=== PATIENT | male | born 1990 | race Caucasian/White ===

== ENCOUNTER 2018-09-12 05:09 | Emergency (ER) | payer OTHER ==
--- NOTE | 2018-09-12 05:20 | ER Report ---
History and Physical Time Seen By MD: 05:20 HPI/ROS CHIEF COMPLAINT: Left-sided flank pain HISTORY OF PRESENT ILLNESS: Patient is a 28-year-old male here with complaints of left-sided flank pain, left abdominal discomfort since approximately 1900 hrs. patient is a history significant for several kidney stones some of which required surgical intervention and urology retrieval. Patient reports that he developed flank pain, radiation to the left lower quadrant of the abdomen, nausea without vomiting over the course of the evening. Patient denies fevers, chills. Patient is passing bowel movements without issue. Patient is hemodynamically stable at time of evaluation REVIEW OF SYSTEMS: Constitutional: No fever, no chills. Eyes: No discharge. ENT: No sore throat. Cardiovascular: No chest pain, no palpitations. Respiratory: No cough, no shortness of breath. Gastrointestinal: + Left lower quadrant abdominal pain, no vomiting.+ Left flank pain Genitourinary: No hematuria or burning with urination. Musculoskeletal: + Left flank pain Skin: No rashes. Neurological: No headache. Allergies: Coded Allergies: No Known Drug Allergies (Unverified , 09/12/18) Home Meds Active Scripts Tamsulosin Hcl (FLOMAX) 0.4 Mg Cap.er.24h, 0.4 MG PO QDAY, #14 CAP 0 Refills Prov:MADI DHALIWAL DO 09/12/18 Oxycodone Hcl/Acetaminophen (PERCOCET 5-325 MG TABLET) 1 Each Tablet, 1 EACH PO Q4H PRN for PAIN, #12 TAB 0 Refills Prov:MADI DHALIWAL DO 09/12/18 Ondansetron 4 Mg Odt (ONDANSETRON 4 MG ODT) 4 Mg Tab.rapdis, 4 MG PO ONCE, #30 TAB Prov:MADI DHALIWAL DO 09/12/18 Reported Medications Potassium Citrate (POTASSIUM CITRATE) 10 Meq Tablet.er, 10 MEQ PO BID 09/12/18 Testosterone Cypionate (TESTOSTERONE CYPIONATE) 100 Mg/1 Ml Vial, 5 ML IM QWEEKF, VIAL 09/12/18 Constitutional Vital Sign - Last 24 Hours 09/12/18 09/12/18 09/12/18 09/12/18 05:09 05:17 05:18 05:24 Temp 97.8 Pulse ??? 77 89 Resp 16 B/P (MAP) 138/89 (105) 138/89 Pulse Ox 94 97 O2 Delivery Room Air 09/12/18 09/12/18 09/12/18 09/12/18 05:30 05:39 05:54 06:00 Pulse ? B/P (MAP) 125/77 (93) ???/??? (1665) 09/12/18 09/12/18 09/12/18 09/12/18 06:09 06:24 06:30 06:39 Pulse ??? 76 77 B/P (MAP) 127/85 (99) Pulse Ox 90 96 09/12/18 09/12/18 06:54 07:00 Pulse 87 B/P (MAP) 135/89 (104) Pulse Ox 95 Intake and Output 09/11/18 09/11/18 09/12/18 15:00 23:00 07:00 Intake Total 1000 ml Balance 1000 ml Physical Exam General Appearance: The patient is alert, has no immediate need for airway protection and no signs of toxicity. No acute distress+ uncomfortable appearing Eyes: Pupils equal and round no pallor or injection. ENT, Mouth: Mucous membranes are moist. Respiratory: There are no retractions, lungs are clear to auscultation. Cardiovascular: Regular rate and rhythm. Gastrointestinal: Abdomen is soft and + tender on palpation of the left lower quadrant, no masses, bowel sounds normal. Neurological: No focal neurological findings Skin: Warm and dry, no rashes. Musculoskeletal: Neck is supple non tender.+ Left sided flank pain Extremities are nontender, nonswollen and have full range of motion. DIFFERENTIAL DIAGNOSIS: After history and physical exam differential diagnosis was considered for abdominal pain including but not limited to appendicitis, c holecystitis, gastritis and urinary tract infection., nephrolithiasis Medical Decision Making Data Points Result Diagram: 09/12/18 0541 09/12/18 0541 Laboratory Hematology Test 09/12/18 05:15 09/12/18 05:41 Urine Color Yellow Urine Clarity Clear Urine pH 6.0 pH (4.8-9.5) Urine Specific [place] 1.015 Urine Protein Negative mg/dL (NEGATIVE) Urine Glucose (UA) Negative mg/dL (NEGATIVE) Urine Ketones Negative mg/dL (NEGATIVE) Urine Blood Moderate (NEGATIVE) Urine Nitrite Negative (NEGATIVE) Urine Bilirubin Negative (NEGATIVE) Urine Urobilinogen Negative mg/dL (0.2-1.9) Urine Leukocyte Esterase Moderate (NEGATIVE) Urine RBC 43 /HPF (0-2/HPF) Urine WBC 3 /HPF (0-5/HPF) Urine Squamous Epithelial Cells Few /LPF (</=FEW) Urine Transitional Epithelial Cells Few /LPF (NONE-FEW) Urine Bacteria Few /HPF (NONE-FEW) Urine Granular Casts Few /LPF (NONE) Urine Mucus Few /HPF (NONE-FEW) Red Blood Count 5.78 M/uL (4.00-5.60) Mean Corpuscular Volume 88.9 fL (80.0-96.0) Mean Corpuscular Hemoglobin 30.1 pg (26.0-33.0) Mean Corpuscular Hemoglobin Concent 33.9 g/dL (32.0-36.0) Red Cell Distribution Width 13.0 % (11.5-14.5) Mean Platelet Volume 7.9 fL (7.2-11.1) Neutrophils (%) (Auto) 60.6 % (39.4-72.5) Lymphocytes (%) (Auto) 29.1 % (17.6-49.6) Monocytes (%) (Auto) 7.8 % (4.1-12.4) Eosinophils (%) (Auto) 1.0 % (0.4-6.7) Basophils (%) (Auto) 1.5 % (0.3-1.4) Nucleated RBC Relative Count (auto) 0.1 /100WBC Neutrophils # (Auto) 3.8 K/uL (2.0-7.4) Lymphocytes # (Auto) 1.8 K/uL (1.3-3.6) Monocytes # (Auto) 0.5 K/uL (0.3-1.0) Eosinophils # (Auto) 0.1 K/uL (0.0-0.5) Basophils # (Auto) 0.1 K/uL (0.0-0.1) Nucleated RBC Absolute Count (auto) 0.01 K/uL Sodium Level 136 mmol/L (137-145) Potassium Level 3.9 mmol/L (3.5-5.0) Chloride Level 104 mmol/L (98-107) Carbon Dioxide Level 23 mmol/L (22-30) Blood Urea Nitrogen 10 mg/dl (9-21) Creatinine 1.00 mg/dl (0.66-1.25) Glomerular Filtration Rate Calc > 60.0 Random Glucose 93 mg/dl (75-110) Calcium Level 9.5 mg/dl (8.4-10.2) Total Bilirubin 0.6 mg/dl (0.2-1.3) Aspartate Amino Transf (AST/SGOT) 20 U/L (0-35) Alanine Aminotransferase (ALT/SGPT) 39 U/L (0-56) Alkaline Phosphatase 75 U/L (0-126) Total Protein 6.5 g/dl (6.3-8.2) Albumin 4.1 g/dl (3.5-5.0) Lipase 147 U/L (23-300) Chemistry Test 09/12/18 05:15 09/12/18 05:41 Urine Color Yellow Urine Clarity Clear Urine pH 6.0 pH (4.8-9.5) Urine Specific [place] 1.015 Urine Protein Negative mg/dL (NEGATIVE) Urine Glucose (UA) Negative mg/dL (NEGATIVE) Urine Ketones Negative mg/dL (NEGATIVE) Urine Blood Moderate (NEGATIVE) Urine Nitrite Negative (NEGATIVE) Urine Bilirubin Negative (NEGATIVE) Urine Urobilinogen Negative mg/dL (0.2-1.9) Urine Leukocyte Esterase Moderate (NEGATIVE) Urine RBC 43 /HPF (0-2/HPF) Urine WBC 3 /HPF (0-5/HPF) Urine Squamous Epithelial Cells Few /LPF (</=FEW) Urine Transitional Epithelial Cells Few /LPF (NONE-FEW) Urine Bacteria Few /HPF (NONE-FEW) Urine Granular Casts Few /LPF (NONE) Urine Mucus Few /HPF (NONE-FEW) White Blood Count 6.2 k/uL (4.5-11.0) Red Blood Count 5.78 M/uL (4.00-5.60) Hemoglobin 17.4 g/dL (14.0-18.0) Hematocrit 51.4 % (42.0-52.0) Mean Corpuscular Volume 88.9 fL (80.0-96.0) Mean Corpuscular Hemoglobin 30.1 pg (26.0-33.0) Mean Corpuscular Hemoglobin Concent 33.9 g/dL (32.0-36.0) Red Cell Distribution Width 13.0 % (11.5-14.5) Platelet Count 271 K/uL (150-450) Mean Platelet Volume 7.9 fL (7.2-11.1) Neutrophils (%) (Auto) 60.6 % (39.4-72.5) Lymphocytes (%) (Auto) 29.1 % (17.6-49.6) Monocytes (%) (Auto) 7.8 % (4.1-12.4) Eosinophils (%) (Auto) 1.0 % (0.4-6.7) Basophils (%) (Auto) 1.5 % (0.3-1.4) Nucleated RBC Relative Count (auto) 0.1 /100WBC Neutrophils # (Auto) 3.8 K/uL (2.0-7.4) Lymphocytes # (Auto) 1.8 K/uL (1.3-3.6) Monocytes # (Auto) 0.5 K/uL (0.3-1.0) Eosinophils # (Auto) 0.1 K/uL (0.0-0.5) Basophils # (Auto) 0.1 K/uL (0.0-0.1) Nucleated RBC Absolute Count (auto) 0.01 K/uL Glomerular Filtration Rate Calc > 60.0 Calcium Level 9.5 mg/dl (8.4-10.2) Total Bilirubin 0.6 mg/dl (0.2-1.3) Aspartate Amino Transf (AST/SGOT) 20 U/L (0-35) Alanine Aminotransferase (ALT/SGPT) 39 U/L (0-56) Alkaline Phosphatase 75 U/L (0-126) Total Protein 6.5 g/dl (6.3-8.2) Albumin 4.1 g/dl (3.5-5.0) Lipase 147 U/L (23-300) Urinalysis Test 09/12/18 05:15 Urine Color Yellow Urine Clarity Clear Urine pH 6.0 pH (4.8-9.5) Urine Specific [place] 1.015 Urine Protein Negative mg/dL (NEGATIVE) Urine Glucose (UA) Negative mg/dL (NEGATIVE) Urine Ketones Negative mg/dL (NEGATIVE) Urine Blood Moderate (NEGATIVE) Urine Nitrite Negative (NEGATIVE) Urine Bilirubin Negative (NEGATIVE) Urine Urobilinogen Negative mg/dL (0.2-1.9) Urine Leukocyte Esterase Moderate (NEGATIVE) Urine RBC 43 /HPF (0-2/HPF) Urine WBC 3 /HPF (0-5/HPF) Urine Squamous Epithelial Cells Few /LPF (</=FEW) Urine Transitional Epithelial Cells Few /LPF (NONE-FEW) Urine Bacteria Few /HPF (NONE-FEW) Urine Granular Casts Few /LPF (NONE) Urine Mucus Few /HPF (NONE-FEW) EKG/Imaging Imaging Location: [facility] - [place] Patient: Jose Morton : 1990 Visit/Account:[id number] Date of Sevice: 09/12/2018 CT of the abdomen and pelvis without contrast: Indication: Left flank pain. Technique: Helical CT was performed through the abdomen and pelvis without contrast. Multiplanar reconstructions are reviewed. One of the following dose optimization techniques was utilized in the performance of this exam: Automated exposure control; adjustment of the mA and/or kV according to the patient's size; or use of an iterative reconstruction technique. Specific details can be referenced in the facility's radiology CT exam operational policy. Comparison: None available. Lower lung ramírez: No parenchymal or pleural abnormality is identified. Liver: Normal in size, shape, and density. Gallbladder/biliary tree: The gallbladder is normal in size and homogeneous in density. The bile ducts are not dilated. Pancreas: Normal in size, shape, and density. Spleen: Normal in size, shape, and density. Adrenal glands: Within normal limits. Kidneys/urinary bladder: There is a 5 mm obstructing calculus in the proximal l eft ureter. Multiple additional calculi are present in the left kidney, measuring up to 6 mm. The left kidney is otherwise unremarkable. Multiple nonobstructing calculi are present in the right kidney, measuring up to 3 mm. There are no signs of right ureteral calculus or obstruction. The distal ureters are unremarkable. The bladder lumen appears homogeneous and unremarkable. Intestinal structures: Unremarkable, as visualized. There are no signs of intestinal obstruction or acute inflammatory changes. The appendix appears normal. Pelvis: The uterus and adnexal structures are unremarkable. Aorta and vascular structures: Within normal limits. Ascites or fluid collections: None seen. Skeletal structures: Intact and unremarkable. Impression: There is a 5 mm obstructing calculus in the proximal left ureter. Multiple additional calculi are present in both kidneys. ED Course/Re-evaluation ED Course Patient is a 28-year-old male here with complaints of left-sided flank pain which started approximately 1900 last evening. Patient has a history significant for multiple kidney stones in the past requiring urological intervention. Patient's kidney function was stable, electrolytes were unremarkable, there were red blood cells present in the urine with no infectious etiology. Patient was given IV fluid bolus, Toradol, IV lidocaine for treatment of renal colic with significant relief of symptoms. CT abdomen and pelvis noncontrast was completed to evaluate for location size a kidney stones if present. Patient was identified to have a ureterolithiasis of 5 mm. Stone was present in the proximal left ureter with mild hydronephrosis. I provided the patient with scripts for Flomax, Zofran, Percocet for a trial of outpatient passage. I recommended the patient follows up closely with urology outpatient. Return precautions provided. Patient voiced understanding of plan. Patient was stable at time of discharge. Decision to Disposition Date: Sep 12, 2018 Decision to Disposition Time: 07:00 Depart Departure Latest Vital Signs Vital Signs Date Time Temp Pulse Resp B/P (MAP) Pulse Ox O2 Delivery O2 Flow Rate FiO2 09/12/18 07:00 135/89 (104) 09/12/18 06:54 87 95 09/12/18 05:18 97.8 16 Room Air Impression: Primary Impression: Ureterolithiasis Condition: Improved Disposition: HOME OR SELF-CARE New Scripts Tamsulosin Hcl (FLOMAX) 0.4 Mg Cap.er.24h 0.4 MG PO QDAY, #14 CAP 0 Refills Prov: MADI DHALIWAL DO 09/12/18 Oxycodone Hcl/Acetaminophen (PERCOCET 5-325 MG TABLET) 1 Each Tablet 1 EACH PO Q4H PRN for PAIN, #12 TAB 0 Refills Prov: MADI DHALIWAL DO 09/12/18 Ondansetron 4 Mg Odt (ONDANSETRON 4 MG ODT) 4 Mg Tab.rapdis 4 MG PO ONCE, #30 TAB Prov: MADI DHALIWAL DO 09/12/18 Patient Instructions: Kidney Stones (ED) Additional Instructions: You were diagnosed with a 5 mm left sided proximal ureteral stone. Please take Flomax 0.4 mg daily until you pass the kidney stone. You may take Zofran 1 tablet every 4-6 hours as needed for nausea and vomiting. You may take Percocet one tablet every 4-6 hours as needed for breakthrough pain control. Please follow-up with urology in town with Dr. Kearns or to monitor kidney stone progress. Please return promptly if you develop fevers, worsening pain, inability keep down food or fluids. MADI DHALIWAL DO Sep 12, 2018 05:20
[2018-09-12] MEDS ORDERED: POTA-35 PO (05:24)
[2018-09-12] MEDS ORDERED: TEST100V6 IM (05:24)
[2018-09-12] MEDS ORDERED: NS(*) 0.9% 1000 ML BAG 1,000 ML IV ONE (05:28)
[2018-09-12] MEDS ORDERED: KETOROLAC 30 MG/ML VIAL IVP ONE (05:30)
[2018-09-12] MEDS ORDERED: LIDOCAINE 2% IV 100 MG/5ML SYR IVP ONE (05:30)
[2018-09-12] MEDS ORDERED: ONDANSETRON 4 MG/2 ML VIAL IVP ONE (05:30)
[2018-09-12 05:56] LABS: PLATELET COUNT, AUTOMATED 271 K/uL (150-450)
--- NOTE | 2018-09-12 06:53 | RADIOLOGY IMAGING REPORT ---
FACILITY: [facility] PATIENT NAME: Jose Morton : 1990 MR: [id number] V: [id number] EXAM DATE: ORDERING PHYSICIAN: MADI DHALIWAL TECHNOLOGIST: Location: [facility] - [place] Patient: Jose Morton : 1990 Visit/Account:[id number] Date of Sevice: 09/12/2018 CT of the abdomen and pelvis without contrast: Indication: Left flank pain. Technique: Helical CT was performed through the abdomen and pelvis without contrast. Multiplanar rec onstructions are reviewed. One of the following dose optimization techniques was utilized in the performance of this exam: Autom ated exposure control; adjustment of the mA and/or kV according to the patient's size; or use of an i terative reconstruction technique. Specific details can be referenced in the facility's radiology CT exam operational policy. Comparison: None available. Lower lung ramírez: No parenchymal or pleural abnormality is identified. Liver: Normal in size, shape, and density. Gallbladder/biliary tree: The gallbladder is normal in size and homogeneous in density. The bile duct s are not dilated. Pancreas: Normal in size, shape, and density. Spleen: Normal in size, shape, and density. Adrenal glands: Within normal limits. Kidneys/urinary bladder: There is a 5 mm obstructing calculus in the proximal left ureter. Multiple a dditional calculi are present in the left kidney, measuring up to 6 mm. The left kidney is otherwise unremarkable. Multiple nonobstructing calculi are present in the right kidney, measuring up to 3 mm. There are no s igns of right ureteral calculus or obstruction. The distal ureters are unremarkable. The bladder lumen appears homogeneous and unremarkable. Intestinal structures: Unremarkable, as visualized. There are no signs of intestinal obstruction or a cute inflammatory changes. The appendix appears normal. Pelvis: The uterus and adnexal structures are unremarkable. Aorta and vascular structures: Within normal limits. Ascites or fluid collections: None seen. Skeletal structures: Intact and unremarkable. Impression: There is a 5 mm obstructing calculus in the proximal left ureter. Multiple additional bhargavi culi are present in both kidneys. Report Dictated By: Constantino Schwartz MD at 09/12/2018 6:18 AM Report E-Signed By: Constantino Schwartz MD at 09/12/2018 6:48 AM WSN:[id number]
[2018-09-12 07:00] VITALS: BP 135/89
[2018-09-12] MEDS ORDERED: ONDA4TAB9 PO (07:02)
[2018-09-12] MEDS ORDERED: OXYC-865 PO (07:02)
[2018-09-12] MEDS ORDERED: TAMS0.4C25 PO (07:02)
== END 2018-09-12 07:13 | disposition home or self-care (01) ==
LOC: ER 05:27
DX: R10.32 Left lower quadrant pain (principal); N20.1 Calculus of ureter
CPT/HCPCS: 74176; 81001; 83690; 85025; 96361; 96374; 96375; 99284; J1885; J2001; J2405; J7030; 82040; 82247; 82310; 82374; 82435; 82565; 82947; 84075; 84132; 84155; 84295; 84450; 84460; 84520

== ENCOUNTER → 2018-09-18 | Outpatient (CLI) | payer OTHER ==
[~2018-09-18] MED LIST: CHOL10005 PO; FAMO20TA28 PO; ONDA4TAB9 PO; OXYC-865 PO; POTA-35 PO; TAMS0.4C25 PO; TEST100V6 IM
[2018-09-18 14:23] LABS: PLATELET COUNT, AUTOMATED 267 K/uL (150-450)
== END ==
LOC: LAB 12:46
PROVIDERS: ATTEND Urology
DX: Z01.818 Encounter for other preprocedural examination (principal); N20.1 Calculus of ureter
CPT/HCPCS: 36415; 82310; 82374; 82435; 82565; 82947; 83735; 83970; 84100; 84132; 84295; 84520; 84550; 85025

== ENCOUNTER 2018-09-24 02:41 | Day surgery (SDC) | payer OTHER ==
[~2018-09-24] VITALS: Ht 152.4 cm; Wt 80.3 kg
[2018-09-24] MEDS ORDERED: ONDANSETRON 4 MG/2 ML VIAL ONE (06:31)
[2018-09-24] MEDS ORDERED: LIDOCAINE MPF 1% 5 ML VIAL ONE (06:31)
[2018-09-24] MEDS ORDERED: METOCLOPRAMIDE 10 MG/2 ML SDV ONE (06:31)
[2018-09-24] MEDS ORDERED: PROPOFOL EMUL(*) 10MG/ML 20 ML 20 ML ONE (06:31)
[2018-09-24] MEDS ORDERED: DEXAMETHASONE SOD 4 MG/ML VIAL ONE (06:34)
[2018-09-24] MEDS ORDERED: fentaNYL CITR 100 MCG/2 ML AMP ONE (06:36)
[2018-09-24 07:08] VITALS: BP 124/86
[2018-09-24] MEDS ORDERED: NORMOSOL R SOLN(*) 1000 ML BAG 1,000 ML IV PRN ×2 (07:24→10:10)
[2018-09-24] MEDS ORDERED: LEVOFLOXACIN/D5W*500 MG/100 ML 100 ML IVPB ONE (07:25)
[2018-09-24] MEDS ORDERED: IOPAMIDOL-200 50 ML VIAL IS ONE (07:28)
[2018-09-24] MEDS ORDERED: BELLADONNA ALK/OPIUM 60MG SUPP PR ONE (07:28)
--- NOTE | 2018-09-24 08:59 | Urology Discharge Summary ---
Discharge Summary Reason for Hosp/Final Diag: (1) Ureterolithiasis Status: Resolved Departure Weight (Pounds): 177 Condition: Improved Discharge: Home Time Spent: < 30 min Discharge Instructions Home Meds Active Scripts Tamsulosin Hcl (FLOMAX) 0.4 Mg Cap.er.24h, 0.4 MG PO QDAY, #14 CAP 0 Refills Prov:MADI DHALIWAL DO 09/12/18 Oxycodone Hcl/Acetaminophen (PERCOCET 5-325 MG TABLET) 1 Each Tablet, 1 EACH PO Q4H PRN for PAIN, #12 TAB 0 Refills Prov:MADI DHALIWAL DO 09/12/18 Reported Medications Cholecalciferol (Vitamin D3) (VITAMIN D3) 1,000 Unit Tablet, 1000 UNIT PO DAILY, TAB 09/20/18 Famotidine (PEPCID) 20 Mg Tablet, 20 MG PO QDAY PRN for REFLUX, TAB 09/20/18 Potassium Citrate (POTASSIUM CITRATE) 10 Meq Tablet.er, 10 MEQ PO BID 09/12/18 Testosterone Cypionate (TESTOSTERONE CYPIONATE) 100 Mg/1 Ml Vial, 5 ML IM QWEEKF, VIAL 09/12/18 Discontinued Scripts Ondansetron 4 Mg Odt (ONDANSETRON 4 MG ODT) 4 Mg Tab.rapdis, 4 MG PO ONCE, #30 TAB Prov:MADI DHALIWAL DO 09/12/18 Diet: Regular Activity: As Tolerated Venous Thromboembolism Antithrombotics Is Pt On Any Antithrombotics?: No LUCAS NICHOLSON MD Sep 24, 2018 08:59
[2018-09-24] MEDS ORDERED: OXYC-865 PO (09:11)
--- NOTE | 2018-09-24 09:19 | RADIOLOGY IMAGING REPORT ---
FAC[facility] PATIENT NAME: Jose Morton : 1990 MR: [id number] V: [id number] EXAM DATE: [id number] ORDERING PHYSICIAN: LUCAS NICHOLSON TECHNOLOGIST: Location: [facility] [place] Patient: Jose Morton : 1990 Visit/Account:[id number] Date of Sevice: 09/24/2018 Exam: C-ARM FLUORO 1 HR Indication: POSSIBLE STENT PLACEMENT, RAD Comparison: CT 09/12/2018 Findings: Fluoroscopy is provided for left-sided ureteroscopy and stent placement. Fluoroscopy time 0.8 minutes DOSE: Air kerma was 6.28 mGy. IMPRESSION: Procedural fluoroscopy Report Dictated By: Damien Urena at 09/24/2018 9:14 AM Report E-Signed By: Damien Urena at 09/24/2018 9:15 AM WSN:[id number]
[2018-09-24 09:30] VITALS: BP 130/80
[2018-09-24 09:41] VITALS: BP 124/87
[2018-09-24 09:43] VITALS: BP 114/82
[2018-09-24] MEDS ORDERED: LIDOCAINE/SOD BICARB 8.4% SYR ID ONE (10:10)
[2018-09-24] MEDS ORDERED: MIDAZOLAM 2 MG/2 ML VIAL IVP PRN (10:10)
--- NOTE | 2018-09-25 10:55 | OPERATIVE REPORT 1 ---
EVENT DATE: September 24, 2018 SURGEON: Nguyễn Montes MD ANESTHESIOLOGIST: Mic Chambers MD ANESTHESIA: General. HEAD SHIPPER: None. PREOPERATIVE DIAGNOSIS Proximal left ureteral calculus with left nephrolithiasis. POSTOPERATIVE DIAGNOSIS Proximal left ureteral calculus with left nephrolithiasis. PROCEDURE PERFORMED Left ureteroscopic laser lithotripsy with stone extraction and stent placement. DESCRIPTION OF PROCEDURE The patient was brought to the operating room and after the adequate induction of general anesthesia, he was placed in the relaxed, dorsal lithotomy position. The bladder was examined with the rigid cystoscope and the ureteral orifices identified. There were no intravesical abnormalities noted cystoscopically. I was able to advance a sensor wire into the left ureteral orifice and up into the left kidney and confirmed this fluoroscopically. In doing so, the stone that was in the proximal ureter was displaced into the upper pole of the kidney. I was then able to use the 28 cm navigator sheath to gain access to the proximal ureter. After passing the ureteroscope, an area of erythema and edema in the proximal ureter was identified, likely the position of the previously noted ureteral stone. Within the kidney, there were numerous stones seen in the calyces, mostly adherent to the medulla, consistent with Joe's plaques. Two free floating stones were identified in the upper pole. Using the 365 Micron laser fiber, the stones were sequentially fragmented and some of the larger fragments retrieved with the [employer] basket for stone analysis. Once all of the stone had been thoroughly fragments into innumerable pieces, a pull-out ureteroscopy was performed from the renal pelvis to the ureteral orifice. No obstructing stone was seen. The cystoscope was replaced and a 24 cm, 5-[place] double-J stent positioned under cystoscopic and fluoroscopic guidance. The bladder was emptied. A B and O suppository was administered. He was aroused from anesthesia and then transported to the PACU in stable condition. KHRIS
== END 2018-09-24 09:30 | disposition home or self-care (01) ==
LOC: OR 02:41
PROVIDERS: ATTEND Urology
DX: N20.2 Calculus of kidney with calculus of ureter (principal)
CPT/HCPCS: 52356; 76000; J1100; J1956; J2001; J2405; J2704; J2765; J3010; 82365; 88300; C1769; C1894; C2617; Q9966

== ENCOUNTER → 2018-09-28 | Outpatient (CLI) | payer OTHER ==
--- NOTE | 2018-09-28 08:47 | RADIOLOGY IMAGING REPORT ---
FACILITY: [facility] - [place] PATIENT NAME: Jose Morton : 1990 MR: [id number] V: [id number] EXAM DATE: ORDERING PHYSICIAN: LUCAS NICHOLSON TECHNOLOGIST: Location: [facility] - [place] Patient: Jose Morton : 1990 Visit/Account:[id number] Date of Sevice: 09/28/2018 Study: KUB SINGLE VIEW ABDOMEN Indication: Pain Comparison study: None available Findings: AP and lateral views of the thoracic spine demonstrates the tip patient is status post lowe r thoracic surgery. There is no evidence of significant loss of height of the thoracic vertebrae. The re is no evidence of abnormality of the surgical hardware. There is no abnormal kyphosis or lordosis of the thoracic spine. IMPRESSION: Status post fusion surgery. No evidence of acute bony abnormality. Report Dictated By: Negro King at 09/28/2018 8:40 AM Report E-Signed By: Negro King at 09/28/2018 8:44 AM WSN:[id number]
== END ==
LOC: RAD 08:15
PROVIDERS: ATTEND Urology
DX: Z98.890 Other specified postprocedural states (principal)
CPT/HCPCS: 74018

== ENCOUNTER → 2018-10-03 | Outpatient (CLI) | payer OTHER ==
[~2018-10-03] MED LIST changes: +CIPR-344 PO; +ONDA4TAB97 PO
== END ==
LOC: LAB 10:00
PROVIDERS: ATTEND Urology
DX: R30.0 Dysuria (principal)
CPT/HCPCS: 81001

== ENCOUNTER → 2018-10-19 | Outpatient (CLI) | payer OTHER | LOC: LAB 16:19 | PROVIDERS: ATTEND Urology | DX: R39.9 Unspecified symptoms and signs involving the genitourinary system (principal) | CPT/HCPCS: 81001 ==

== ENCOUNTER → 2018-10-26 | Outpatient (CLI) | payer OTHER | LOC: LAB 16:13 | PROVIDERS: ATTEND Urology | DX: R39.9 Unspecified symptoms and signs involving the genitourinary system (principal) | CPT/HCPCS: 81001; 87088 ==

== ENCOUNTER → 2018-10-31 | Outpatient (CLI) | payer OTHER ==
[~2018-10-31] MED LIST changes: +CYCL10TA29 PO
--- NOTE | 2018-10-31 16:00 | RADIOLOGY IMAGING REPORT ---
FACILITY: [facility] - [place] PATIENT NAME: Jose Morton : 1990 MR: [id number] V: [id number] EXAM DATE: ORDERING PHYSICIAN: LUCAS NICHOLSON TECHNOLOGIST: Location: [facility] - [place] Patient: Jose Morton : 1990 Visit/Account:[id number] Date of Sevice: 10/31/2018 Supine abdomen, one view. HISTORY: Ureterolithiasis, bilateral flank and abdominal pain. COMPARISON: Abdominal radiograph 09/28/2018, and abdominal/pelvic CT scan 09/12/2018. Moderate amounts of stool and moderate amounts of gas are scattered in the colon and rectum. Gas is p resent within several nondilated loops of small bowel. The left ureteral stent is no longer present. A 3 mm calcification projects on the upper pole of left kidney, unchanged. The right kidney is mos tly obscured by bowel contents. A right pelvic phlebolith is unchanged. No acute bony abnormalities . No other calcifications are identified in the region of either ureter. The upper abdomen was not completely included. IMPRESSION: Removal of left ureteral stent. Left nephrolithiasis. Obscured right kidney. Report Dictated By: Louie Phipps MD at 10/31/2018 3:50 PM Report E-Signed By: Louie Phipps MD at 10/31/2018 3:55 PM WSN:[id number]
== END ==
LOC: RAD 15:18
PROVIDERS: ATTEND Urology
DX: N20.0 Calculus of kidney (principal)
CPT/HCPCS: 74018

== ENCOUNTER → 2018-12-05 | Outpatient (CLI) | payer OTHER ==
[~2018-12-05] MED LIST changes: +OXCA300T44 PO; +TRAZ150T8 PO
--- NOTE | 2018-12-05 09:06 | RADIOLOGY IMAGING REPORT ---
FACILITY: [facility] - [place] PATIENT NAME: Jose Morton : 1990 MR: [id number] V: [id number] EXAM DATE: ORDERING PHYSICIAN: SANJUANA FAN TECHNOLOGIST: Location: [facility] - [place] Patient: Jose Morton : 1990 Visit/Account:[id number] Date of Sevice: 12/05/2018 THYROID HISTORY: hyperparathyroidism COMPARISON: None. FINDINGS: SIZE: Normal. Right lobe: 4.2 x 1.4 x 1.7 cm Left lobe: 4.1 x 1.3 x 1.7 cm Isthmus: 3 mm PARENCHYMA: Homogeneous. NODULES: Right lobe: * None discrete. Left lobe: * None discrete. Isthmus: * None discrete. VASCULARITY: Within normal limits. ADDITIONAL FINDINGS: None. IMPRESSION: Unremarkable thyroid ultrasound REFERENCE: 2015 [place] [employer] Management Guidelines for Adult Patients with Thyroid Nodules and D ifferentiated Thyroid Cancer: The [place] [employer] Guidelines Task Force on Thyroid Nodul es and Differentiated Thyroid Cancer. SONOGRAPHIC PATTERNS: * Benign: Purely cystic nodules (no solid component); estimated risk of malignancy <1 percent; no bi opsy recommended. * Very Low Suspicion: Spongiform or partially cystic nodules without any of the sonographic features described in low, intermediate, or high suspicion patterns; estimated risk of malignancy <3 percent; consider FNA at > 2 cm (Observation without FNA is also a reasonable option). * Low Suspicion: Isoechoic or hyperechoic solid nodule, or partially cystic nodule with eccentric so lid areas, without microcalcification, irregular margin or ETE (extra-thyroidal extension), or taller than wide shape; estimated risk of malignancy 5-10 percent; recommend FNA at >1.5 cm. * Intermediate Suspicion: Hypoechoic solid nodule with smooth margins without microcalcifications, E TE (extra-thyroidal extension), or taller than wide shape; estimated risk of malignancy 10-20 percent ; recommend FNA at > 1 cm. * High Suspicion: Solid hypoechoic nodule or solid hypoechoic component of a partially cystic nodule with one or more of the following features: irregular margins (infiltrative, microlobulated), microc alcifications, taller than wide shape, rim calcifications with small extrusive soft tissue component, evidence of ETE (extra-thyroidal extension); estimated risk of malignancy >70-90 percent; recommend FNA at > 1 cm. NOTES: * Although a sonographically suspicious subcentimeter thyroid nodule without evidence of extrathyroi daniel extension or sonographically suspicious lymph nodes may be observed with close sonographic follow -up rather than pursuing immediate FNA, patient age and preference may modify decision-making. A > 50% interval increase in nodule volume and/or development of new suspicious sonographic features are felt to be a valid reasons for potential re-aspiration of a nodule previously shown to have benig n FNA cytology. Report Dictated By: Saima Barbosa MD at 12/05/2018 9:00 AM Report E-Signed By: Saima Barbosa MD at 12/05/2018 9:01 AM ADITHYAN:TAMAR
== END ==
LOC: US 00:27
PROVIDERS: ATTEND Otolaryngology
DX: E21.3 Hyperparathyroidism, unspecified (principal)
CPT/HCPCS: 76536

== ENCOUNTER → 2018-12-06 | Outpatient (CLI) | payer OTHER ==
--- NOTE | 2018-12-06 15:32 | RADIOLOGY IMAGING REPORT ---
FACILITY: [facility] - [place], [place] PATIENT NAME: Jose Morton : 1990 MR: [id number] V: [id number] EXAM DATE: ORDERING PHYSICIAN: SANJUANA FAN TECHNOLOGIST: Location: [facility] - [place] Patient: Jose Morton : 1990 Visit/Account:[id number] Date of Sevice: 12/06/2018 EXAMINATION: Nuclear Medicine Parathyroid Scan With SPECT 12/06/2018 7:34 AM HISTORY: hyperparathyroidism TECHNIQUE: 22.8 mCi technetium 99m Sestamibi was injected intravenously. Gamma camera images were o btained of the head, neck and chest at 15 minutes and three hours in various orientations following r adiotracer administration. SPECT imaging was also done. COMPARISON STUDIES: Thyroid ultrasound 12/05/2018 FINDINGS: 15 minute images: normal uptake of tracer by the salivary glands, the thyroid gland, and the myocard ium. Excreted hepatobiliary activity is seen beneath the diaphragm. 3 hour images: normal washout of tracer from the thyroid gland. No focal areas of abnormal radiotrac er uptake are identified in the neck or mediastinum to suggest the presence of a parathyroid adenoma. IMPRESSION: Normal study. Report Dictated By: Vimal Oconnell MD at 12/06/2018 3:26 PM Report E-Signed By: Vimal Oconnell MD at 12/06/2018 3:28 PM WSN:[email or web address]
== END ==
LOC: NUC 12-05 13:33
PROVIDERS: ATTEND Otolaryngology
DX: E21.3 Hyperparathyroidism, unspecified (principal)
CPT/HCPCS: 78070; A9500

== ENCOUNTER → 2018-12-19 | Outpatient (CLI) | payer OTHER ==
[~2018-12-19] MED LIST changes: +IOPAMIDOL 76% 100 ML INFUS BTL 100 ML ONE
--- NOTE | 2018-12-19 12:30 | RADIOLOGY IMAGING REPORT ---
FACILITY: [facility] - [place] PATIENT NAME: Jose Morton : 1990 MR: [id number] V: [id number] EXAM DATE: ORDERING PHYSICIAN: SANJUANA FAN TECHNOLOGIST: Location: [facility] Patient: Jose Morton : 1990 Visit/Account:[id number] Date of Sevice: 12/19/2018 EXAMINATION: CT neck without IV contrast CT neck with IV contrast HISTORY: Hyperparathyroidism. COMPARISON: Thyroid ultrasound from 12/05/2018 and sestamibi scan from 12/06/2018. TECHNIQUE: Spiral scan was obtained from the hard palate through the gage without and with nonion ic iodinated intravenous contrast, including arterial and venous phase images. Sagittal and coronal reformatted images are also submitted. CONTRAST: 75 mL of IV Isovue-370. One of the following dose optimization techniques was utilized in the performance of this exam: Autom ated exposure control; adjustment of the mA and/or kV according to the patient's size; or use of an i terative reconstruction technique. Specific details can be referenced in the facility's radiology C T exam operational policy. FINDINGS: Masses/lesions: There is a small area of enhancement immediately below the right thyroid lobe measur ing 4 x 2 mm (image 306 series 10) by 4 mm (image 70 series 9). This de-enhances slightly more on th e delayed phase images than a few other adjacent tiny lymph nodes posterior and inferior to the thyro id. Airway: Normal. Vessels: Negative. Musculoskeletal/body wall: Negative. Lymph nodes: There are a few scattered shotty lymph nodes in the neck. No enlarged or abnormal morph ology lymph nodes. Visualized orbits/brain/paranasal sinuses: Negative. Upper chest: Negative. IMPRESSION: 4 x 2 x 4 mm lesion inferior to the right thyroid lobe may be a parathyroid adenoma, although a small lymph node is in the differential. Report Dictated By: Isabella Cobos MD at 12/19/2018 12:10 PM Report E-Signed By: Isabella Cobos MD at 12/19/2018 12:24 PM WSN:[id number]
== END ==
LOC: CT 01:03
PROVIDERS: ATTEND Otolaryngology
DX: E21.3 Hyperparathyroidism, unspecified (principal)
CPT/HCPCS: 70492; Q9967

== ENCOUNTER 2019-01-11 00:15 | Observation (INO) | payer OTHER ==
[2019-01-11] VITALS (13 sets, daily range): BP systolic 116–153; BP diastolic 67–93
[~2019-01-11] VITALS: Ht 154.9 cm; Wt 80.3 kg
[~2019-01-11 00:15] MED LIST changes: -IOPAMIDOL 76% 100 ML INFUS BTL 100 ML ONE
[2019-01-11] MEDS ORDERED: LIDOCAINE/SOD BICARB 8.4% SYR ID ONE (07:25)
[2019-01-11] MEDS ORDERED: MIDAZOLAM 2 MG/2 ML VIAL IVP PRN (07:25)
[2019-01-11] MEDS ORDERED: NORMOSOL R SOLN(*) 1000 ML BAG 1,000 ML IV PRN (07:25)
[2019-01-11 08:31] LABS: PLATELET COUNT, AUTOMATED 245 K/uL (150-450)
[2019-01-11] MEDS ORDERED: fentaNYL CITR 250 MCG/5 ML AMP ONE (08:34)
[2019-01-11] MEDS ORDERED: LIDOCAINE MPF 1% 5 ML VIAL ONE (08:35)
[2019-01-11] MEDS ORDERED: PROPOFOL EMUL(*) 10MG/ML 20 ML 20 ML ONE (08:35)
[2019-01-11] MEDS ORDERED: ONDANSETRON 4 MG/2 ML VIAL ONE (08:35)
[2019-01-11] MEDS ORDERED: DEXAMETHASONE SOD PHOS 10MG/ML ONE (08:35)
[2019-01-11] MEDS ORDERED: KETAMINE HCL 200 MG/20 ML MDV ONE (08:37)
[2019-01-11] MEDS ORDERED: ceFAZolin(*) 2GM/D5W 50ML 50 ML IVPB ONE (08:45)
[2019-01-11] MEDS ORDERED: NS 0.9% 20 ML SDV 20 ML ONE (08:45)
[2019-01-11] MEDS ORDERED: REMIFENTANIL HCL 1 MG VIAL ONE ×2 (08:49→11:04)
[2019-01-11] MEDS ORDERED: LIDO/EPI 1% MDV 1:100,000 20ML INFIL ONE (09:20)
[2019-01-11] MEDS ORDERED: HALOPERIDOL LACT 5 MG/ML VIAL IM ONE (09:55)
[2019-01-11] MEDS ORDERED: ePHEDrine 25 MG/5 ML DISP.SYR IVP ONE (10:27)
[2019-01-11] MEDS ORDERED: LR(*) 1000 ML BAG 1,000 ML IV PRN (12:23)
--- NOTE | 2019-01-11 12:23 | Post Operative Note ---
Operative Note - ENT Operative Day Date: Jan 11, 2019 Physicians Surgeon: Bobby Napper Tender: Martin Anesthesia: GETA Diagnosis Pre-Op Diagnosis: hyperparathyroidism Post-Op Diagnosis: same Procedure Findings: see dictated note Procedure(s): parathyroid gland exploration with removal of right superior, inferior and left inferior glands Specimen Removed:(Maybe N/A): as above Complications: none Fluids Fluids: see anesthesia note Estimated Blood Loss: 25 ml SANJUANA FAN JR, MD Jan 11, 2019 12:23
[2019-01-11] MEDS ORDERED: FAMOTIDINE 20 MG TAB PO PRN (12:25)
[2019-01-11] MEDS ORDERED: ONDANSETRON 4 MG ODT TABDP SL PRN (12:25)
[2019-01-11] MEDS ORDERED: APAP/HYDROCODONE 325/5 TAB PO PRN (12:25)
[2019-01-11] MEDS ORDERED: PROMETHAZINE 25 MG/ML 1 ML AMP ONE (13:02)
[2019-01-11] MEDS ORDERED: OXCA150T64 PO (14:25)
[2019-01-11] MEDS ORDERED: OXCA300T59 PO (16:17)
[2019-01-11] MEDS ORDERED: NS(*) 0.9% 250 ML BAG 250 ML ONE (17:34)
[2019-01-11] MEDS: ceFAZolin(*) 1 GM VIAL 1 GM in NS(*) 0.9% 100 ML MINI-BAG 100 ML IVPB SCH (17:43)
[2019-01-11] MEDS: CALCIUM CARBONATE 500 MG CHEW CHEW SCH (20:33)
[2019-01-11] MEDS ORDERED: OXcarbazepine 300 MG TAB PO SCH (21:00)
[2019-01-11] MEDS ORDERED: traZODone HCL 50 MG TAB PO SCH (21:00)
[2019-01-12] MEDS: ceFAZolin(*) 1 GM VIAL 1 GM in NS(*) 0.9% 100 ML MINI-BAG 100 ML IVPB SCH ×2 (00:17→08:40)
[2019-01-12 02:46] VITALS: BP 119/58
[2019-01-12 07:20] VITALS: BP 143/84
[2019-01-12] MEDS: CALCIUM CARBONATE 500 MG CHEW CHEW SCH (08:39)
[2019-01-12] MEDS ORDERED: LOR5/325 PO (08:56)
[2019-01-12] MEDS ORDERED: CEFU500T10 PO (08:56)
--- NOTE | 2019-01-12 09:00 | Short(Outpt) Discharge Summary ---
Discharge Summary Reason for Hosp/Final Diag: (1) Hyperparathyroidism Status: Resolved Hospital Course & Plan: Patient underwent parathyroidectomy on day of admission. Postoperative labs with normalized PTH and calcium. Pain well controlled. Caitlyn reg diet. Discharged in stable condition. Departure Discharge to: Home Discharge Instructions Home Meds Active Scripts Hydrocodone Bit/Acetaminophen (HYDROCODON-ACETAMINOPHEN 5-325) 1 Each Tablet, 1 EACH PO Q6H PRN for MILD TO MODERATE PAIN for 7 Days, #8 TAB Prov:SANJUANA FAN JR, MD 01/12/19 Reported Medications Oxcarbazepine (OXCARBAZEPINE) 300 Mg Tablet, 600 MG PO HS 01/11/19 Trazodone Hcl (TRAZODONE HCL) 150 Mg Tablet, 150 MG PO QHS 12/05/18 Famotidine (PEPCID) 20 Mg Tablet, 20 MG PO QDAY PRN for REFLUX, TAB 09/20/18 Testosterone Cypionate (TESTOSTERONE CYPIONATE) 100 Mg/1 Ml Vial, 5 ML IM QWEEKF, VIAL 09/12/18 Discontinued Reported Medications Oxcarbazepine (OXCARBAZEPINE) 150 Mg Tablet, 300 MG PO HS 01/11/19 Oxcarbazepine (TRILEPTAL) 300 Mg Tablet, 300 MG PO HS 12/05/18 Diet: Regular Activity: No Heavy Lifting, No Exertion Special Instructions: Follow up with Dr. Fan on Monday01/22/19 at 10:30A. No lifting greater than 15 pounds, You may shower, but do not submerge your incision in water. Leave steri strips in place. Do not take NSAIDs for 7 days. Buy regular TUMS [id number] and take 2 twice a day until your follow-up visit. SANJUANA FAN JR, MD Jan 12, 2019 09:00
--- NOTE | 2019-01-12 23:30 | OPERATIVE REPORT 1 ---
EVENT DATE: January 11, 2019 SURGEON: Obed Rosales MD ANESTHESIOLOGIST: Janes Foss MD ANESTHESIA: General endotracheal. HIGH MAN: Lindsey Salazar PROCEDURE PERFORMED Four-gland parathyroid exploration with removal of right inferior, right superior, and left inferior parathyroid glands. PREOPERATIVE DIAGNOSIS Primary hyperparathyroidism. POSTOPERATIVE DIAGNOSES 1. Primary hyperparathyroidism. 2. 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 INDICATIONS Please refer to the preoperative note. DESCRIPTION OF PROCEDURE The patient was positively identified in the preoperative area. He was accompanied there by his mother and father. Risks again explained included, but not limited to bleeding, infection, injury to the recurrent laryngeal nerves, transient or permanent dysphonia, persistent hyperparathyroidism, hypoparathyroidism, and those associated with anesthesia. The patient acknowledged understanding of those risks. He was then brought back to the operative suite and laid supine on the operative table, and anesthesia was administered. Once asleep, the patient was positioned and prepped and draped in the usual sterile fashion. Of note, the laryngeal nerve monitor was attached to the patient and utilized throughout the case. A 4 cm incision was planned in a favorable neck crease overlying the thyroid gland. Approximately 1 mL of 1% lidocaine with epinephrine was infiltrated. The aforementioned incision was then made with a 15 blade. The underlying subcutaneous tissue was then dissected with Bovie electrocautery. The platysma muscle was identified and divided with Bovie electrocautery. Subplatysmal flaps were elevated superiorly to the level of the thyroid notch and inferiorly to the level of the sternal notch. The strap musculature was identified. This was divided along the median raphe. I first began on the right side as preoperative imaging was consistent with a right inferior parathyroid adenoma. The strap musculature was elevated off the right thyroid lobe. The lobe was gently rotated medially and then dissected in the area of the inferior pole. A large mass consistent with a parathyroid gland was visualized. This was removed. The intraoperative parathyroid hormone increased from 53 to 245. These labs were repeated given that the parathyroid hormone increased. At this juncture, I completed a four- gland exploration and identified the right superior, left superior, and left inferior glands. These were all found to be of similar caliber. I sequentially removed a second and a third gland, leaving the left superior gland intact. The wound was then copiously irrigated with normal saline solution. The platysma muscle was closed with interrupted chromic suture. The skin was closed in a multilayer fashion. A postoperative parathyroid hormone level was 49. Estimated blood loss was 25 mL. There were no complications. [facility]
[2019-01-14] MEDS ORDERED: AMOX500T10 PO (11:59)
== END 2019-01-12 10:25 | disposition home or self-care (01) ==
LOC: OR 00:15 → MED 13:30
PROVIDERS: ADMIT Otolaryngology; ATTEND Otolaryngology
DX: E21.0 Primary hyperparathyroidism (principal)
CPT/HCPCS: 36415; 60500; 82310; 83970; 85025; 88305; G0378; J0690; J1100; J1630; J2001; J2250; J2405; J2550; J2704; J3010; J3490; J7050; 96372

== ENCOUNTER → 2019-01-18 | Outpatient (CLI) | payer OTHER ==
[~2019-01-18] MED LIST changes: +AMOX500T10 PO; +CEFU500T10 PO; +LOR5/325 PO; +OXCA150T64 PO; +OXCA300T59 PO
== END ==
LOC: LAB 10:21
PROVIDERS: ATTEND Otolaryngology
DX: E21.3 Hyperparathyroidism, unspecified (principal)
CPT/HCPCS: 36415; 82310; 83970